=== PATIENT | female | born 1990 | race Caucasian/White ===

== ENCOUNTER 2023-03-16 12:49 | Emergency (ER) | payer OTHER, MEDICAID, SELFPAY ==
[2023-03-16] VITALS (12 sets, daily range): BP systolic 83–105; BP diastolic 46–61; PULSE 91–101; RESP 14–18; TEMP 36.7; O2SAT 94–100; BMI 24.7
--- NOTE | 2023-03-16 13:05 | PC.NURSE ---
Addendum entered by Kassandra Rausch R.N. 03/16/23 13:07: [facility] states she did not get her daily methadone which is 90 mg. Contfirmed dose w/ [facility] clinic. Original Note: Wanted to be seen for nausea @ [facility]. Then found to have 10 days on and off abd pain. No inciting factors. They did ekg which was normal. HCG urine negative last week. Has been taking ibuprofen 800 bid x weeks. c/o sob and chest pain there.
[2023-03-16] MEDS: METHADONE INTENSOL 10 MG/ML ORAL.CONC 90 MG PO (13:46)
[2023-03-16] MEDS: SODIUM CHLORIDE 0.9% 1,000 ML 1000 ML IV (13:46)
[2023-03-16] MEDS: ONDANSETRON 4 MG/2 ML INJ IV (13:52)
[2023-03-16 14:17] LABS: COVID-19 CEPHEID 4-PLEX PCR Negative (Negative); Influenza A - CEPHEID Flu A NEGATIVE (NEGATIVE); Influenza B - CEPHEID Flu B NEGATIVE (NEGATIVE); Respiratory Syncytial Virus Negative (Negative)
[2023-03-16] MEDS: FAMOTIDINE 20 MG TABLET 40 MG PO (14:18)
[2023-03-16] MEDS: MAG HYDROX/ALUMINUM/SIMETH SUS 20 ML, LIDOCAINE VISCOUS 2% 15 ML PO (14:18)
--- NOTE | 2023-03-16 14:51 | ED_ITS ---
HPI - Abdominal Pain <Joaquin Mac PA-C - Last Filed: 03/16/23 16:54> General Chief Complaint: Abdominal Pain Stated Complaint: stomach pain Time Seen by Provider: 03/16/23 14:01 Source: patient Mode of arrival: Ambulatory History of Present Illness HPI narrative: 32-year-old female who receives daily methadone treatments at the [facility] was sent by the clinic to the ED for further evaluation of abdominal pain. Patient endorses onset of abdominal pain and 3 episodes of vomiting that started this morning. Patient was not given the methadone at the clinic today. The clinic was called and it appears that patient receives a 90 mg dose daily. Patient denies fever, chills, chest pain, shortness of breath, cough, rhinorrhea, dysuria, lightheadedness, dizziness, syncope. Patient does endorse a history of GERD for which she takes some medication. Related Data Home Medications Medication Instructions Recorded Confirmed ALBUTEROL SULFATE (Ventolin / 1 inh IH PRN ##0 05/20/10 Proventil) methadone 10 mg/mL oral 90 mg PO DAILY 03/16/23 03/16/23 concentrate (Methadone Intensol) Allergies Allergy/AdvReac Type Severity Reaction Status Date / Time amitriptyline Allergy Unknown Verified 03/16/23 13:18 amoxicillin [From Augmentin] Allergy Unknown Verified 03/16/23 13:18 buprenorphine [From Suboxone] Allergy Unknown Verified 03/16/23 13:18 clavulanic acid Allergy Unknown Verified 03/16/23 13:18 [From Augmentin] clindamycin Allergy Unknown Verified 03/16/23 13:18 naloxone [From Suboxone] Allergy Unknown Verified 03/16/23 13:18 zolpidem [From Ambien] Allergy Unknown Verified 03/16/23 13:18 Review of Systems <Joaquin Mac PA-C - Last Filed: 03/16/23 16:54> Constitutional Constitutional: Denies chills, Denies fatigue, Denies fever(s), Denies frequent falls, Denies lethargy and Denies weakness Eyes Eyes: Denies change in vision, Denies eye discharge, Denies irritation and Denies loss of vision ENT Ears, Nose, Mouth, and Throat: Denies change in voice, Denies dizziness, Denies neck pain, Denies sore throat and Denies throat swelling Cardiovascular Cardiovascular: Denies chest pain, Denies irregular heart rhythm, Denies lightheadedness, Denies palpitations, Denies dyspnea, Denies dyspnea on exertion and Denies orthopnea Respiratory Respiratory: Denies cough, Denies dyspnea, Denies dyspnea on exertion and Denies wheezing Gastrointestinal Gastrointestinal: Reports abdominal pain, Denies change in bowel habits, Denies diarrhea, Reports nausea and Reports vomiting Musculoskeletal Musculoskeletal: Denies neck pain and Denies numbness Integumentary/Breasts Skin/Breast: Denies pruritus, Denies erythema, Denies rash and Denies wounds Neurologic Neurologic: Denies behavioral changes, Denies confusion, Denies dizziness, Denies frequent falls, Denies loss of vision, Denies numbness and Denies weakness Psychiatric Psychiatric: Denies anxiety, Denies behavioral changes, Denies confusion, Denies depression, Denies homicidal ideation and Denies suicidal ideation Endocrine Endocrine: Denies fatigue, Denies flushing and Denies palpitations Hematologic/Lymphatic Hematologic/Lymphatic: Denies easy bruising Allergic/Immunologic Allergic/Immunologic: Denies urticaria, Denies throat swelling and Denies wheezing Exam <Joaquin Mac PA-C - Last Filed: 03/16/23 16:54> Narrative Exam Narrative: Const General:?cooperative, healthy appearing and comfortable [facility] Head:?normal to inspection Ears:?hearing grossly normal bilaterally Nose:?external nose normal Face and sinus:?normal facial exam and sinuses nontender Mouth:?oral mucosae normal Throat:?posterior oropharynx normal Eyes General:?appearance normal, both eyes and all related structures Neck Neck:?normal visual inspection and no lymphadenopathy noted Resp Effort & Inspection:?normal respiratory effort Auscultation:?clear to auscultation bilaterally Cardio Rate:?regular rate Rhythm:?regular rhythm GI Abdomen is soft, nondistended, nontender to palpation. Neuro General:?patient alert, patient awake and patient oriented x3 Initial Vital Signs Initial Vital Signs: Vital Signs Temperature 98.0 F 03/16/23 12:55 Pulse Rate 92 H 03/16/23 12:55 Respiratory Rate 18 03/16/23 12:55 Blood Pressure 99/60 03/16/23 12:55 Pulse Oximetry 98 03/16/23 12:55 Oxygen Delivery Method Room Air 03/16/23 12:55 <Gabi Workman DO - Last Filed: 03/23/23 03:17> Initial Vital Signs Initial Vital Signs: Vital Signs Temperature 98.0 F 03/16/23 12:55 Pulse Rate 92 H 03/16/23 12:55 Respiratory Rate 18 03/16/23 12:55 Blood Pressure 99/60 03/16/23 12:55 Pulse Oximetry 98 03/16/23 12:55 Oxygen Delivery Method Room Air 03/16/23 12:55 Course <Joaquin Mac PA-C - Last Filed: 03/16/23 16:54> Orders Ordered: Discontinued Medications Al Hydrox/Mg Hydrox/Simethicone 20 ml/ Lidocaine HCl 15 ml 0 ml PO NOW ONE Stop: 03/16/23 14:12 Last Admin: 03/16/23 14:18 Dose: 35 ml Documented By: KATHY Famotidine (Famotidine 20 Mg Tablet) 40 mg PO NOW ONE Stop: 03/16/23 14:14 Last Admin: 03/16/23 14:18 Dose: 40 mg Documented By: KATHY Sodium Chloride (Normal Saline 0.9%) 1,000 mls @ 1,000 mls/hr IV BOLUS ONE Stop: 03/16/23 14:38 Last Infusion: 03/16/23 14:41 Dose: Infused Documented By: Admin: 03/16/23 13:46 Dose: 1,000 mls/hr Documented By: KATHY Methadone HCl (Methadone Intensol 10 Mg/Ml Oral.Conc) 90 mg PO NOW ONE Stop: 03/16/23 13:22 Last Admin: 03/16/23 13:46 Dose: 90 mg Documented By: KATHY Ondansetron HCl (Ondansetron 4 Mg Odt) 4 mg PO NOW PRN PRN Reason: Nausea And Vomiting Ondansetron HCl (Ondansetron 4 Mg/2 Ml Inj) 4 mg IV NOW PRN PRN Reason: Nausea And Vomiting Last Admin: 03/16/23 13:52 Dose: 4 mg Documented By: KATHY Vital Signs Vital signs: Vital Signs - 8 hr 03/16/23 12:55 03/16/23 13:34 03/16/23 13:55 Temperature 98.0 F Pulse Rate 92 H 98 H 101 H Respiratory Rate 18 Blood Pressure 99/60 Pulse Oximetry 98 100 99 Oxygen Delivery Method Room Air 03/16/23 13:55 03/16/23 14:00 03/16/23 14:00 Temperature Pulse Rate 98 H Respiratory Rate Blood Pressure 100/61 100/59 L Pulse Oximetry 100 Oxygen Delivery Method 03/16/23 14:30 03/16/23 14:30 03/16/23 15:00 Temperature Pulse Rate 100 H 100 H Respiratory Rate Blood Pressure 105/56 L Pulse Oximetry 99 99 Oxygen Delivery Method 03/16/23 15:02 03/16/23 15:02 03/16/23 15:30 Temperature Pulse Rate 98 H Respiratory Rate Blood Pressure 98/57 L 83/46 L Pulse Oximetry 100 Oxygen Delivery Method 03/16/23 15:30 03/16/23 15:33 03/16/23 15:33 Temperature Pulse Rate 97 H 95 H Respiratory Rate 14 Blood Pressure 94/51 L Pulse Oximetry 98 99 Oxygen Delivery Method Room Air 03/16/23 16:00 03/16/23 16:00 03/16/23 16:05 Temperature Pulse Rate 91 H 94 H Respiratory Rate 14 Blood Pressure 94/53 L Pulse Oximetry 94 98 Oxygen Delivery Method Room Air 03/16/23 16:38 Temperature Pulse Rate Respiratory Rate Blood Pressure 95/56 L Pulse Oximetry Oxygen Delivery Method <Gabi Workman, - Last Filed: 03/23/23 03:17> Orders Ordered: Discontinued Medications Al Hydrox/Mg Hydrox/Simethicone 20 ml/ Lidocaine HCl 15 ml 0 ml PO NOW ONE Stop: 03/16/23 14:12 Last Admin: 03/16/23 14:18 Dose: 35 ml Documented By: KATHY Famotidine (Famotidine 20 Mg Tablet) 40 mg PO NOW ONE Stop: 03/16/23 14:14 Last Admin: 03/16/23 14:18 Dose: 40 mg Documented By: KATHY Sodium Chloride (Normal Saline 0.9%) 1,000 mls @ 1,000 mls/hr IV BOLUS ONE Stop: 03/16/23 14:38 Last Infusion: 03/16/23 14:41 Dose: Infused Documented By: Admin: 03/16/23 13:46 Dose: 1,000 mls/hr Documented By: KATHY Methadone HCl (Methadone Intensol 10 Mg/Ml Oral.Conc) 90 mg PO NOW ONE Stop: 03/16/23 13:22 Last Admin: 03/16/23 13:46 Dose: 90 mg Documented By: KATHY Ondansetron HCl (Ondansetron 4 Mg Odt) 4 mg PO NOW PRN PRN Reason: Nausea And Vomiting Ondansetron HCl (Ondansetron 4 Mg/2 Ml Inj) 4 mg IV NOW PRN PRN Reason: Nausea And Vomiting Last Admin: 03/16/23 13:52 Dose: 4 mg Documented By: KATHY Vital Signs Vital signs: Vital Signs - 8 hr 03/16/23 12:55 03/16/23 13:34 03/16/23 13:55 Temperature 98.0 F Pulse Rate 92 H 98 H 101 H Respiratory Rate 18 Blood Pressure 99/60 Pulse Oximetry 98 100 99 Oxygen Delivery Method Room Air 03/16/23 13:55 03/16/23 14:00 03/16/23 14:00 Temperature Pulse Rate 98 H Respiratory Rate Blood Pressure 100/61 100/59 L Pulse Oximetry 100 Oxygen Delivery Method 03/16/23 14:30 03/16/23 14:30 03/16/23 15:00 Temperature Pulse Rate 100 H 100 H Respiratory Rate Blood Pressure 105/56 L Pulse Oximetry 99 99 Oxygen Delivery Method 03/16/23 15:02 03/16/23 15:02 03/16/23 15:30 Temperature Pulse Rate 98 H Respiratory Rate Blood Pressure 98/57 L 83/46 L Pulse Oximetry 100 Oxygen Delivery Method 03/16/23 15:30 03/16/23 15:33 03/16/23 15:33 Temperature Pulse Rate 97 H 95 H Respiratory Rate 14 Blood Pressure 94/51 L Pulse Oximetry 98 99 Oxygen Delivery Method Room Air 03/16/23 16:00 03/16/23 16:00 03/16/23 16:05 Temperature Pulse Rate 91 H 94 H Respiratory Rate 14 Blood Pressure 94/53 L Pulse Oximetry 94 98 Oxygen Delivery Method Room Air 03/16/23 16:38 Temperature Pulse Rate Respiratory Rate Blood Pressure 95/56 L Pulse Oximetry Oxygen Delivery Method MDM - Abdominal Pain <Joaquin Mac PA-C - Last Filed: 03/16/23 16:54> Lab Data 03/16/23 15:00 03/16/23 15:00 Labs: Lab Results 03/16/23 03/16/23 03/16/23 Range/Units 13:33 15:00 16:16 WBC 13.8 H (4.5-11.0) X10^3/uL RBC 4.45 (4.0-5.2) X10^6/uL Hgb 13.1 (12.0-16.0) g/dL Hct 39.0 (36-46) % MCV 87.7 (80-100) fL MCH 29.5 (26-34) PG MCHC 33.6 (30-36) % RDW 13.6 (11.6-14.8) % Plt Count 217 (150-400) X10^3/uL Neut % (Auto) 90.8 H (50-75) % Lymph % (Auto) 2.9 L (25-40) % [place] % (Auto) 5.5 (3-14) % Eos % (Auto) 0.7 L (2-4) % Baso % (Auto) 0.1 (0-2) % Neut # (Auto) 47025 H (1014-8054) /uL Lymph # (Auto) 400 L (8030-5584) /uL [place] # (Auto) 800 (0-900) /uL Eos # (Auto) 100 (0-450) /uL Baso # (Auto) 0 (0-100) /uL Sodium 137 (137-145) mmol/L Potassium 3.9 (3.4-5.1) mmol/L Chloride 107 (98-107) mmol/L Carbon Dioxide 22 (22-32) mmol/L BUN 17 (7-17) mg/dL Creatinine 0.61 (0.52-1.04) mg/dL Estimated GFR > 60 (>60) mL/min BUN/Creatinine Ratio 27.9 H (6-22) Glucose 129 H (70-100) mg/dL Calcium 8.6 (8.4-10.2) mg/dL Total Bilirubin 0.5 (0.2-1.3) mg/dL AST 32 (14-36) IU/L ALT 16 (<35) IU/L Alkaline Phosphatase 69 (38-126) U/L Total Protein 6.9 (6.3-8.2) g/dL Albumin 3.7 (3.5-5.0) g/dL Globulin 3.2 (1.7-4.1) g/dL Albumin/Globulin Ratio 1.2 (1.0-2.8) Lipase 68 (23-300) U/L Ur Bilirubin Confirm Cancelled SARS-CoV-2 (PCR) Negative (Negative) Influenza A (RT-PCR) Flu a negative (NEGATIVE) Influenza B (RT-PCR) Flu b negative (NEGATIVE) RSV (PCR) Negative (Negative) Point of care testing: Point of Care Testing Test Results Negative Urine Dip Bedside Urine Glucose Negative Bedside Urine Bilirubin ++ 2 Bedside Urine Ketone - Negative Urine Specific [place] 1.030 Bedside Urine Occult Blood - Negative Bedside Urine pH 5.5 Bedside Urine Protein +/- 15 Bedside Urine Urobilinogen - Negative Bedside Urine Nitrite - Negative Bedside Urine Leukocytes - Negative Esterase MDM Narrative Medical decision making narrative: 32-year-old female who receives daily methadone treatments at the [facility] was sent by the clinic to the ED for further evaluation of abdominal pain. Concern for GERD versus withdrawal from opiates versus gastroenteritis versus versus UTI versus other. Obtained labs, UA, urine hCG. Abdominal exam was benign, no imaging indicated at this time. UA without UTI. Urine hCG is negative. White count elevated to 13.8. Blood pressure tended to run in the systolic 90s. Discussed with patient who says that her blood pressure baseline is in the systolic 90s, and sometimes even lower. All other labs within normal limits. Patient's symptoms resolved with GI cocktail, Pepcid AC, Zofran, IV fluids. Abdomen on re-examination is again benign. Discussed findings with patient. Recommend continued use of Pepcid AC or other acid suppressant for GERD. Recommend good hydration. Recommend follow-up with PCP as soon as possible. ED return precautions were discussed with patient. Patient verbalized understanding. Medical records reviewed: Yes <Gabi Workman DO - Last Filed: 03/23/23 03:17> Lab Data Labs: Lab Results 03/16/23 03/16/23 03/16/23 Range/Units 13:33 15:00 16:16 WBC 13.8 H (4.5-11.0) X10^3/uL RBC 4.45 (4.0-5.2) X10^6/uL Hgb 13.1 (12.0-16.0) g/dL Hct 39.0 (36-46) % MCV 87.7 (80-100) fL MCH 29.5 (26-34) PG MCHC 33.6 (30-36) % RDW 13.6 (11.6-14.8) % Plt Count 217 (150-400) X10^3/uL Neut % (Auto) 90.8 H (50-75) % Lymph % (Auto) 2.9 L (25-40) % [place] % (Auto) 5.5 (3-14) % Eos % (Auto) 0.7 L (2-4) % Baso % (Auto) 0.1 (0-2) % Neut # (Auto) 56575 H (1181-7243) /uL Lymph # (Auto) 400 L (4646-7320) /uL [place] # (Auto) 800 (0-900) /uL Eos # (Auto) 100 (0-450) /uL Baso # (Auto) 0 (0-100) /uL Sodium 137 (137-145) mmol/L Potassium 3.9 (3.4-5.1) mmol/L Chloride 107 (98-107) mmol/L Carbon Dioxide 22 (22-32) mmol/L BUN 17 (7-17) mg/dL Creatinine 0.61 (0.52-1.04) mg/dL Estimated GFR > 60 (>60) mL/min BUN/Creatinine Ratio 27.9 H (6-22) Glucose 129 H (70-100) mg/dL Calcium 8.6 (8.4-10.2) mg/dL Total Bilirubin 0.5 (0.2-1.3) mg/dL AST 32 (14-36) IU/L ALT 16 (<35) IU/L Alkaline Phosphatase 69 (38-126) U/L Total Protein 6.9 (6.3-8.2) g/dL Albumin 3.7 (3.5-5.0) g/dL Globulin 3.2 (1.7-4.1) g/dL Albumin/Globulin Ratio 1.2 (1.0-2.8) Lipase 68 (23-300) U/L Ur Bilirubin Confirm Cancelled SARS-CoV-2 (PCR) Negative (Negative) Influenza A (RT-PCR) Flu a negative (NEGATIVE) Influenza B (RT-PCR) Flu b negative (NEGATIVE) RSV (PCR) Negative (Negative) Point of care testing: Point of Care Testing Test Results Negative Urine Dip Bedside Urine Glucose Negative Bedside Urine Bilirubin ++ 2 Bedside Urine Ketone - Negative Urine Specific [place] 1.030 Bedside Urine Occult Blood - Negative Bedside Urine pH 5.5 Bedside Urine Protein +/- 15 Bedside Urine Urobilinogen - Negative Bedside Urine Nitrite - Negative Bedside Urine Leukocytes - Negative Esterase Discharge Plan Departure Patient Disposition: Home Clinical Impression: Nausea & vomiting Qualifiers: Vomiting type: unspecified Qualified Code(s): R11.2 - Nausea with vomiting, unspecified Instructions: DI for Abdominal Pain-Adult, Nausea and Vomiting-Adult Activity Restrictions/Additional Instructions: You were evaluated in the ED today for nausea, vomiting and abdominal pain. Your symptoms improved with the GI cocktail, Pepcid AC, Zofran, IV fluids. You were also given your daily dose of methadone in the ED today. Please continue to stay well hydrated. You may take Pepcid AC twice daily for heartburn. Please follow-up with your PCP as soon as possible. Return to the ED if you have worsening symptoms, persistent vomiting, abdominal pain. Prescriptions: No Action ALBUTEROL SULFATE (Ventolin / Proventil) 1 inh IH PRN Qty: 0 methadone [Methadone Intensol] 10 mg/mL Concentrate 90 mg PO DAILY Referrals: William Christianson MD [Primary Care Provider] - Stand Alone Forms: Patient Portal/API ED Sign-out <Gabi Workman DO - Last Filed: 03/23/23 03:17> Cosign ED Attending Susie Attestation: I was available for consultation.
[2023-03-16 15:11] LABS: Add Manual Diff / Slide Review NO; Basophils Absolute Auto 0 /uL (0-100); Basophils Percent Auto 0.1 % (0-2); Eosinophils Absolute Auto 100 /uL (0-450); Eosinophils Percent Auto 0.7 % (2-4); Hemoglobin 13.1 g/dL (12.0-16.0); Lymphocytes Absolute Auto 400 /uL (1100-4500); Lymphocytes Percent Auto 2.9 % (25-40); Mean Corpuscular HGB Conc 33.6 % (30-36); Mean Corpuscular Hemoglobin 29.5 PG (26-34); Mean Corpuscular Volume 87.7 fL (80-100); Monocytes Absolute Auto 800 /uL (0-900); Monocytes Percent Auto 5.5 % (3-14); Neutrophils Absolute Auto 12500 /uL (1500-7000); Neutrophils Percent Auto 90.8 % (50-75); Platelet Count 217 X10^3/uL (150-400); Red Blood Cell Count 4.45 X10^6/uL (4.0-5.2); Red Cell Distribution Width 13.6 % (11.6-14.8); White Blood Cell Count 13.8 X10^3/uL (4.5-11.0)
[2023-03-16 15:22] LABS: Alanine Aminotransferase 16 IU/L (<35); Albumin 3.7 g/dL (3.5-5.0); Albumin Globulin Ratio 1.2 (1.0-2.8); Alkaline Phosphatase 69 U/L (38-126); BUN Creatinine Ratio 27.9 (6-22); Bilirubin Total 0.5 mg/dL (0.2-1.3); Blood Urea Nitrogen 17 mg/dL (7-17); Calcium 8.6 mg/dL (8.4-10.2); Carbon Dioxide 22 mmol/L (22-32); Chloride 107 mmol/L (98-107); Estimated Glomerular Filt Rate > 60 mL/min (>60); Globulin 3.2 g/dL (1.7-4.1); Glucose 129 mg/dL (70-100); Lipase 68 U/L (23-300); Potassium 3.9 mmol/L (3.4-5.1); Sodium 137 mmol/L (137-145); Total Protein 6.9 g/dL (6.3-8.2)
[2023-03-19 16:30] LABS: HEMOLYSIS 34 (0-50)
[2023-03-19 16:34] LABS: Aspartate Aminotransferase 32 IU/L (14-36)
== END 2023-03-16 16:44 | disposition home or self-care (01) ==
PROVIDERS: Emergency Medicine; Emergency Provider Student in an Organized Health Care Education/Training Program; Family Provider Family Medicine; PCP Family Medicine
DX: R11.2 Nausea with vomiting, unspecified (principal)
CPT/HCPCS: 0241U; 36415; 80053; 81003; 81025; 83690; 85025; 96374; 99284; A9270; J2405

== ENCOUNTER 2023-09-09 09:47 | Emergency (ER) | payer OTHER, MEDICAID, SELFPAY ==
[2023-09-09 09:55] VITALS: BP 110/65; PULSE 89; RESP 20; TEMP 37.1; O2SAT 98; BMI 21.2
--- NOTE | 2023-09-09 10:00 | ED.GENADULT ---
HPI - General Adult General Chief complaint: Headache Stated complaint: JADE x 2 weeks Time Seen by Provider: 09/09/23 09:57 Source: patient Mode of arrival: Ambulatory Limitations: no limitations History of Present Illness HPI narrative: Patient is a 33-year-old female who is here for evaluation of 2 weeks of headache. Patient states 2 weeks ago she was at her methadone clinic when she states that she felt like her vision went out and she was having ringing in her ears. She was also having headache at that time. She was advised to come to the emergency department but she stated that she had to go let her dog out of the car so she never came to the emergency department. That was 2 weeks ago. She has had a persistent headache since then. She states she went to an outside hospital this morning because she states that her vision changes and ringing in her ears were ?stroke-like symptoms. She stated this outside hospital they wanted to check her? for an infection? she did not think that she had an infection so she left that hospital. Went to the methadone clinic this morning. Stated that she was ?too tired to drive? so she went to go see medical with the methadone clinic. Was complaining of a headache so they advised she come to the emergency department. She states she is having pain in her legs but no other neurologic symptoms. Has not tried anything for her headache prior to arrival Related Data Home Medications Medication Instructions Recorded Confirmed ALBUTEROL SULFATE (Ventolin / 1 inh IH PRN ##0 05/20/10 Proventil) methadone 10 mg/mL oral 90 mg PO DAILY 03/16/23 03/16/23 concentrate (Methadone Intensol) Previous Rx's Medication Instructions Recorded [id number] 1 cap PO TID PRN pain #10 caps 09/09/23 50 mg-300 mg-40 mg capsule (Fioricet) Allergies Allergy/AdvReac Type Severity Reaction Status Date / Time amitriptyline Allergy Unknown Verified 03/16/23 13:18 amoxicillin [From Augmentin] Allergy Unknown Verified 03/16/23 13:18 buprenorphine [From Suboxone] Allergy Unknown Verified 03/16/23 13:18 clavulanic acid Allergy Unknown Verified 03/16/23 13:18 [From Augmentin] clindamycin Allergy Unknown Verified 03/16/23 13:18 naloxone [From Suboxone] Allergy Unknown Verified 03/16/23 13:18 zolpidem [From Ambien] Allergy Unknown Verified 03/16/23 13:18 Review of Systems Review of Systems Narrative: See HPI Patient History Social History Smoking Status: Current every day smoker Exam Initial Vital Signs Initial Vital Signs: Vital Signs Temperature 98.7 F 09/09/23 09:55 Pulse Rate 89 09/09/23 09:55 Respiratory Rate 20 09/09/23 09:55 Blood Pressure 110/65 09/09/23 09:55 Pulse Oximetry 98 09/09/23 09:55 Oxygen Delivery Method Room Air 09/09/23 09:55 Const General: cooperative, comfortable and disheveled HENMT Head: normal to inspection and normocephalic Resp Effort & Inspection: normal respiratory effort Cardio Rate: regular rate Neuro General: patient alert, patient awake, patient oriented x3 and moves all extremities Cognition: normal cognition Speech: speech normal Gait: normal gait Motor: muscle tone normal throughout Extrem General: normal to inspection and capillary refill normal Course Orders Ordered: ED Orders 09/09/23 10:01 CT head/brain wo con Stat Discontinued Medications Acetaminophen (Acetaminophen 325 Mg Tablet) 650 mg PO NOW ONE Stop: 09/09/23 10:02 Last Admin: 09/09/23 10:12 Dose: 650 mg Documented By: MPO Acetaminophen/Butalbital/Caffeine (Butalb/Apap/Caffeine 50/325/40 Tablet) 1 each PO NOW ONE Stop: 09/09/23 12:06 Vital Signs Vital signs: Vital Signs - 8 hr 09/09/23 09:55 09/09/23 10:31 09/09/23 11:00 Temperature 98.7 F Pulse Rate 89 77 72 Respiratory Rate 20 Blood Pressure 110/65 110/55 L Pulse Oximetry 98 94 95 Oxygen Delivery Method Room Air Medical Decision Making Imaging Data CT scan - head: Radiologist's Impression: PROCEDURE: CT HEAD/BRAIN WO CON INDICATIONS: 2 weeks of a headache TECHNIQUE: Noncontrast 4.5 mm thick angled axial sections acquired from the foramen magnum to the vertex, with coronal and sagittal reformats. For radiation dose reduction, the following was used: automated exposure control, adjustment of mA and/or kV according to patient size. COMPARISON: [facility], CT, CT HEAD WITHOUT CONTRAST, 02/17/2022, 23:36. FINDINGS: Image quality: Diagnostic. CSF spaces: Basal cisterns are patent. No extra-axial fluid collections. Ventricles are normal in size and shape. Brain: No midline shift. No intracranial masses or hemorrhage. Isaac-white matter interface is normal. Skull and face: Calvarium and visualized facial bones are intact, without suspicious lesions. Sinuses: Visualized sinuses and mastoids are clear. IMPRESSION: No acute intracranial pathology. MDM Narrative Medical decision making narrative: No CT evidence of acute CVA. Given her presentation and symptoms that she would 2 weeks ago I have low suspicion that this is a CVA. He was given Tylenol. Was sent home with a prescription for Fioricet. We can hold on further imaging studies for now. Discharge Plan Departure Patient Disposition: Home Clinical Impression: Headache Instructions: DI for Headache Activity Restrictions/Additional Instructions: Continue to take all of your medications as directed. Use the medication that was prescribed today as needed for headaches. Contact your primary doctor for follow-up. Return to the emergency department for new or worsening symptoms. Prescriptions: New [id number] [Fioricet] 50-300-40 mg capsule 1 cap PO TID PRN (Reason: pain) Qty: 10 0RF No Action ALBUTEROL SULFATE (Ventolin / Proventil) 1 inh IH PRN Qty: 0 methadone [Methadone Intensol] 10 mg/mL Concentrate 90 mg PO DAILY Referrals: William Christianson MD [Primary Care Provider] - Stand Alone Forms: Patient Portal/API
[2023-09-09] MEDS: ACETAMINOPHEN 325 MG TABLET 650 MG PO (10:12)
[2023-09-09 10:31] VITALS: BP 110/55; PULSE 77; O2SAT 94
[2023-09-09 11:00] VITALS: PULSE 72; O2SAT 95
[2023-09-09] MEDS: BUTALB/APAP/CAFFEINE 50/325/40 TABLET 1 EACH PO (12:15)
[2023-09-09 12:21] VITALS: BP 103/60; PULSE 69; RESP 20; TEMP 37; O2SAT 95
== END 2023-09-09 12:51 | disposition home or self-care (01) ==
PROVIDERS: Emergency Provider Emergency Medicine; Family Provider Family Medicine; PCP Family Medicine
DX: R51.9 Headache, unspecified (principal)
CPT/HCPCS: 70450; 99283